=== PATIENT | female | born 1990 | race Caucasian/White ===

== ENCOUNTER 2017-05-23 12:28 | Emergency (ER) | payer OTHER ==
[2017-05-23] MEDS ORDERED: DIPHENHYDRAMINE HCL 25 MG CAPSULE PO ONE (12:40)
[2017-05-23] MEDS ORDERED: METOCLOPRAMIDE HCL 10 MG TABLET PO ONE (12:41)
--- NOTE | 2017-05-23 12:42 | ER Document Report ---
ED Medical Screen (RME) - General Chief Complaint: S/S of Possible Stroke Stated Complaint: NUMBNESS Time Seen by Provider: 05/23/17 12:35 Notes: This 26-year-old female patient with a long history of hemiplegic migraine reports onset this morning at 10:30 AM of right-sided numbness to the foot traveling up the leg and eventually to the upper extremity and the face. It later began to progress over to the left side of her body. She also noted some difficulty with speech earlier. She reports this is the third episode of this in the past week. She has not taken medications because there is no headache involved and the symptoms eventually clear. Reports when she gets severe episodes she will have speech trouble, problems concentrating or remembering how to name objects, and profound weakness. Time speech is clear, she is able to grasp and hold objects with both extremities. There is no facial asymmetry. She is almost 30 weeks . I have greeted and performed a rapid initial assessment of this patient. A comprehensive ED assessment and evaluation of the patient, analysis of test results and completion of the medical decision making process will be conducted by additional ED providers. TRAVEL OUTSIDE OF THE [place] IN LAST 30 DAYS: No - Related Data Allergies/Adverse Reactions: cefaclor [From [facility]] Allergy (Verified 03/31/16 03:59) Penicillins Allergy (Verified 03/31/16 03:59) Past Medical History Endocrine Medical History: Reports: Hx Hypothyroidism Renal/ Medical History: Denies: Hx Peritoneal Dialysis - Immunizations Hx Diphtheria, Pertussis, Tetanus Vaccination: Yes - received with [facility] Physical Exam - Vital signs Vitals: Temp Pulse Resp BP Pulse Ox 98.1 F 100 17 138/72 H 99 05/23/17 12:33 05/23/17 12:33 05/23/17 12:33 05/23/17 12:33 05/23/17 12:33 Course - Vital Signs Vital signs: Temp Pulse Resp BP Pulse Ox 98.1 F 100 17 138/72 H 99 05/23/17 12:33 05/23/17 12:33 05/23/17 12:33 05/23/17 12:33 05/23/17 12:33
[2017-05-23] MEDS ORDERED: NORMAL SALINE 1000 ML 1,000 ML IV ONE (13:00)
--- NOTE | 2017-05-23 13:24 | ER Document Report ---
ED General - General Chief Complaint: S/S of Possible Stroke Stated Complaint: NUMBNESS Time Seen by Provider: 05/23/17 12:35 Notes: The patient is a 26-year-old female patient, 29weeks , long history of hemiplegic migraine, reports onset this morning at 10:30 AM of right- sided numbness to the foot traveling up the leg and eventually to the upper extremity and the face. It later began to progress over to the left side of her body. She also noted some difficulty with speech earlier. She reports this is the third episode of this in the past week. She has not taken medications because there is no headache involved and the symptoms eventually clear. She reports when she gets severe episodes she will have speech trouble, problems concentrating or remembering how to name objects, and profound weakness. Denies abdominal pain, urinary symptoms, nausea, vomiting, fever, blurry vision , ataxia, neck stiffness or back pain. TRAVEL OUTSIDE OF THE [place] IN LAST 30 DAYS: No - Related Data Allergies/Adverse Reactions: cefaclor [From [facility]] Allergy (Verified 03/31/16 03:59) Penicillins Allergy (Verified 03/31/16 03:59) Past Medical History - General Information source: Patient - Social History Smoking Status: Never Smoker Family History: Reviewed & Not Pertinent Patient has suicidal ideation: No Patient has homicidal ideation: No Endocrine Medical History: Reports: Hx Hypothyroidism Renal/ Medical History: Denies: Hx Peritoneal Dialysis - Immunizations Hx Diphtheria, Pertussis, Tetanus Vaccination: Yes - received with [facility] Review of Systems - Review of Systems Notes: REVIEW OF SYSTEMS: CONSTITUTIONAL: -fevers, -chills EENT: -eye pain, -difficulty swallowing, -nasal congestion CARDIOVASCULAR:-chest pain, -syncope. RESPIRATORY: -cough, -SOB GASTROINTESTINAL: -abdominal pain, - nausea, -vomiting, -diarrhea GENITOURINARY: -dysuria, -hematuria MUSCULOSKELETAL: -back pain, -neck pain SKIN: -rash or skin lesions. HEMATOLOGIC: -easy bruising or bleeding. LYMPHATIC: -swollen, enlarged glands. NEUROLOGICAL: -altered mental status or loss of consciousness, +headache, + neurologic symptoms PSYCHIATRIC: -anxiety, -depression. ALL OTHER SYSTEMS REVIEWED AND NEGATIVE. Physical Exam - Vital signs Vitals: Temp Pulse Resp BP Pulse Ox 98.1 F 100 17 138/72 H 99 05/23/17 12:33 05/23/17 12:33 05/23/17 12:33 05/23/17 12:33 05/23/17 12:33 - Notes Notes: PHYSICAL EXAMINATION: GENERAL: Well-appearing, well-nourished and in no acute distress. HEAD: Atraumatic, normocephalic. EYES: Pupils equal round and reactive to light, extraocular movements intact, sclera anicteric, conjunctiva are normal. ENT: nares patent, oropharynx clear without exudates. Moist mucous membranes. NECK: Normal range of motion, supple without lymphadenopathy LUNGS: Breath sounds clear to auscultation bilaterally and equal. No wheezes rales or rhonchi. HEART: Regular rate and rhythm without murmurs ABDOMEN: Soft, nontender, normoactive bowel sounds. No guarding, no rebound. No masses appreciated. EXTREMITIES: Normal range of motion, no pitting or edema. No cyanosis. NEUROLOGICAL: Cranial nerves grossly intact. Slightly slurred speech (according to mom), normal gait. Numbness of left shoulder. Normal motor exams. PSYCH: Normal mood, normal affect. SKIN: Warm, Dry, normal turgor, no rashes or lesions noted. Course - Re-evaluation Re-evalutation: With worsening headache that is different from her prior migraines and right and now left sided numbness with slurred speech and , concern for central venous thrombosis. Will obtain MRV of head. Spoke to patient about risks and benefits of Gadolinium during and provided her with an article to read. Answered her questions and she consents to the MRV. 05/23/17 18:31 Pt's ache and neuro symptoms have completely resolved. Patient MRV and MRI do not show any acute abnormalities. Her neuro symptoms are most likely related to her hemiplegic migraines. Instructed patient to continue Tylenol and magnesium oxide for any headaches follow-up with her OB tomorrow as scheduled and neurologist. - Vital Signs Vital signs: Temp Pulse Resp BP Pulse Ox 98.1 F 90 17 131/85 H 99 05/23/17 12:33 05/23/17 18:00 05/23/17 18:00 05/23/17 18:00 05/23/17 18:00 - Laboratory Result Diagrams: 05/23/17 13:00 07/05/17 13:00 Laboratory results interpreted by me: 05/23/17 05/23/17 13:00 13:00 Hgb 10.3 L Hct 32.2 L MCV 73 L MCH 23.5 L RDW 15.4 H Carbon Dioxide 21 L BUN 5 L Creatinine 0.50 L - Diagnostic Test Radiology reviewed: Image reviewed, Reports reviewed Radiology results interpreted by me: MRI/MRV: NAD Discharge - Discharge Clinical Impression: Headache Qualifiers: Headache type: unspecified Headache chronicity pattern: chronic headache Intractability: not intractable Qualified Code(s): R51 - Headache Condition: Stable Disposition: HOME, SELF-CARE Additional Instructions: Your MRI and MRV do not show any evidence of blood clots or any other concerning abnormalities. Take Tylenol and mag oxide and follow-up with your OB tomorrow as scheduled. Follow-up with the neurologist for further evaluation and treatment. HEADACHE: The physician does not feel that the headache you are experiencing has a serious underlying cause. Most headaches are due to emotional stress, with resultant muscle tension (tension headache). Occasionally, headaches are secondary to changes in the blood vessels of the scalp (vascular headache and migraine headache). Sometimes, a headache is the first symptom of another developing illness, such as a viral infection. You have no evidence of stroke, bleeding, meningitis, or other serious cause of your headache. The treatment of headaches varies with the severity and cause of the pain. Not all headaches need pain shots. In fact, there is evidence that using narcotics for headaches may make them worse in the long run. The physician will determine the therapy that's in your best interest. If you develop a fever, if the headache is different from any you've previously experienced, or if the headache progressively worsens, then call your physician at once or go to the emergency room. REGLAN (METOCLOPRAMIDE): Reglan has been prescribed. This medicine affects the stomach and intestines. It can be used to treat nausea and vomiting, to prevent reflux of stomach acid up into the esophagus, or to increase the contractions of the stomach and intestines. It is often prescribed for esophagitis, and for paralysis of the stomach in diabetics. Reglan can cause either mild restlessness or drowsiness. You should contact the doctor at once if you become extremely restless, anxious, or cannot sleep, or if you develop uncontrollable motions of the lips, tongue, or jaw. Do not take alcohol with this medicine. Do not drive or operate machinery until you have been taking this medicine long enough to know how it affects you. Call the doctor if you develop abdominal pains, lightheadedness, black stool, or blood in the stool or vomitus. USE OF DIPHENHYDRAMINE: Diphenhydramine (Benadryl) is an antihistamine and has been recommended to help treat your headache and to prevent side effects of other medications used to treat headaches. The medication can be repeated four times daily. Age Elixir (12.5 mg/tsp) 25 mg pill adult 1-2 tabs Antihistamines may cause drowsiness, especially with the first dose. Do not operate machinery or drive while under the effects of the medication. Do not combine the medication with alcohol, or with any other medication without talking to your doctor. FOLLOW-UP CARE: If you have been referred to a physician for follow-up care, call the physician s office for an appointment as you were instructed or within the next two days. If you experience worsening or a significant change in your symptoms, notify the physician immediately or return to the Emergency Department at any time for re-evaluation. Referrals: JACQUES CHRISTY MD [Primary Care Provider] - Follow up as needed CATRACHITO MARTÍNEZ MD [ACTIVE STAFF] - Follow up as needed
[2017-05-23 13:46] LABS: ABSOLUTE EOSINOPHILS # (AUTO) 0.3 10^3/uL (0.0-0.6); ABSOLUTE LYMPHOCYTES (AUTO) 1.6 10^3/uL (0.5-4.7); ABSOLUTE MONOCYTES (AUTO) 0.6 10^3/uL (0.1-1.4); ABSOLUTE NEUT (AUTO) 7.4 10^3/uL (1.7-8.2); BASOPHILS % (AUTO) 0.1 % (0-2); EOSINOPHILS % (AUTO) 3.2 % (0-6); HEMATOCRIT 32.2 % (36.0-47.0); HEMOGLOBIN 10.3 g/dL (12.0-15.5); HGB HCT DIFFERENCE -1.3; LYMPHOCYTES % (AUTO) 16.4 % (13-45); MEAN CORPUSCULAR HEMOGLOBIN 23.5 pg (27.0-33.4); MEAN CORPUSCULAR VOLUME 73 fl (80-97); MONOCYTES % (AUTO) 6.5 % (3-13); RED BLOOD COUNT 4.39 10^6/uL (3.72-5.28); RED CELL DISTRIBUTION WIDTH 15.4 % (11.5-14.0); SEGMENTED NEUTROPHILS % (AUTO) 73.8 % (42-78)
[2017-05-23 14:05] LABS: ANION GAP 12 (5-19); BLOOD UREA NITROGEN 5 mg/dL (7-20); CARBON DIOXIDE 21 mmol/L (22-30); CHLORIDE 104 mmol/L (98-107); GLUCOSE 80 mg/dL (75-110); POTASSIUM 4.1 mmol/L (3.6-5.0)
--- NOTE | 2017-05-23 18:08 | RADIOLOGY REPORT (SQ) ---
EXAM DESCRIPTION: MRI HEAD WITHOUT COMPLETED DATE/TIME: 05/23/2017 5:50 pm REASON FOR STUDY: numbness, slurred speech COMPARISON: None. TECHNIQUE: Multiplanar imaging includes non-contrasted T1, T2, FLAIR, and diffusion with ADC map seq uences. Images stored on PACS. LIMITATIONS: None. FINDINGS: ANATOMY: No anomalies. Normal vascular flow voids. Pituitary fossa normal. CSF SPACES: Normal in size and contour. No hemorrhage. CEREBRUM: Sulci and gyri normal in size and contour. Normal white matter signal on FLAIR imaging. No evidence of hemorrhage, mass, or extraaxial fluid collection. POSTERIOR FOSSA: No signal alteration. No hemorrhage. No edema, masses or mass effect. Internal malachi tory canals, cerebello-pontine angles, mastoids normal. DIFFUSION IMAGING: Negative for acute or sub-acute infarction. ORBITS: No masses. Globes normal. PARANASAL SINUSES: Right maxillary sinus opacification. OTHER: No other significant finding. IMPRESSION: NORMAL MRI OF THE BRAIN WITHOUT INTRAVENOUS GADOLINIUM CONTRAST.Right maxillary sinus op acification. TECHNICAL DOCUMENTATION: JOB ID: [id number]- All Rights Reserved
[2017-05-23 18:10] VITALS: BP 131/85
--- NOTE | 2017-05-23 18:13 | RADIOLOGY REPORT (SQ) ---
EXAM DESCRIPTION: MRA HEAD WITHOUT COMPLETED DATE/TIME: 05/23/2017 5:50 pm REASON FOR STUDY: MRV, headache, slurred speech, COMPARISON: None. TECHNIQUE: Multi planar multisequence imaging was obtained for performance of an MRV. LIMITATIONS: None. FINDINGS: There is patency of the major cerebral venous structures. No intraluminal thrombus is teagan ntified. IMPRESSION: No significant findings. TECHNICAL DOCUMENTATION: JOB ID: [id number] [employer]- All Rights Reserved
== END 2017-05-23 18:29 | disposition home or self-care (01) ==
LOC: ER 12:28
DX: O26.93 Pregnancy related conditions, unspecified, third trimester (principal); R20.0 Anesthesia of skin; R51 Headache; E03.9 Hypothyroidism, unspecified; Z3A.29 29 weeks gestation of pregnancy; Z88.0 Allergy status to penicillin
CPT/HCPCS: 99284; 96360; 36415; 85025; 80048; 70551; 70544; J7030

== ENCOUNTER 2017-05-26 21:09 | Emergency (ER) | payer OTHER ==
[2017-05-26] MEDS ORDERED: DIPHENHYDRAMINE HCL 50 MG/ML VIAL IV ONE (22:23)
[2017-05-26] MEDS ORDERED: KETOROLAC TROMETHAMINE INJ/PF 30 MG/1 ML SDV IV ONE (22:23)
[2017-05-26] MEDS ORDERED: PROCHLORPERAZINE EDISYLATE INJ 10 MG/2 ML VIAL IV ONE (22:23)
--- NOTE | 2017-05-26 23:07 | ER Document Report ---
ED General - General Chief Complaint: Headache Stated Complaint: HEADACHE Time Seen by Provider: 05/26/17 21:53 Notes: Patient is a 26-year-old female currently who presents with a migraine headache. Describes it as a severe, constant, throbbing pain to her right- sided scalp and behind her right eye. Notes associated blurring of her vision and vomiting. Any exposure to light or loud sounds worsens the pain. She has tried Tylenol without improvement of the pain. Notes a history of similar headaches in the past. Headache was gradual in onset and did get progressively worse. Patient was recently seen and evaluated in the emergency department for similar presentation and had an MRI of her head at that time which was noted to be normal. Denies any focal weakness or numbness. TRAVEL OUTSIDE OF THE [place] IN LAST 30 DAYS: No - Related Data Allergies/Adverse Reactions: cefaclor [From Ceclor] Allergy (Verified 03/31/16 03:59) Penicillins Allergy (Verified 03/31/16 03:59) Past Medical History - General Information source: Patient - Social History Smoking Status: Never Smoker Frequency of alcohol use: None Drug Abuse: None Lives with: Spouse/Significant other Family History: Reviewed & Not Pertinent Patient has suicidal ideation: No Patient has homicidal ideation: No Endocrine Medical History: Reports: Hx Hypothyroidism Renal/ Medical History: Denies: Hx Peritoneal Dialysis - Immunizations Hx Diphtheria, Pertussis, Tetanus Vaccination: Yes - received with [facility] Review of Systems - Review of Systems Notes: Constitutional: Negative for fever. HENT: Negative for sore throat. Eyes: Negative for visual changes. Cardiovascular: Negative for chest pain. Respiratory: Negative for shortness of breath. Gastrointestinal: Negative for abdominal pain, vomiting or diarrhea. Genitourinary: Negative for dysuria. Musculoskeletal: Negative for back pain. Skin: Negative for rash. Neurological: Positive for headache 10 point ROS negative except as marked above and in HPI. Physical Exam - Vital signs Vitals: Temp Pulse Resp BP Pulse Ox 97.8 F 103 H 16 119/67 100 05/26/17 21:19 05/26/17 21:19 05/26/17 21:19 05/26/17 21:19 05/26/17 21:19 Interpretation: Tachycardic Notes: PHYSICAL EXAMINATION: GENERAL: Well-appearing, well-nourished and in no acute distress. HEAD: Atraumatic, normocephalic. EYES: Pupils equal round and reactive to light, extraocular movements intact, sclera anicteric, conjunctiva are normal. ENT: nares patent, oropharynx clear without exudates. Moist mucous membranes. NECK: Normal range of motion, supple without lymphadenopathy LUNGS: Breath sounds clear to auscultation bilaterally and equal. No wheezes rales or rhonchi. HEART: Regular rate and rhythm without murmurs ABDOMEN: Soft, nontender, normoactive bowel sounds. No guarding, no rebound. No masses appreciated. EXTREMITIES: Normal range of motion, no pitting or edema. No cyanosis. NEUROLOGICAL: Face symmetric. Tongue protrudes midline. Extraocular motions intact. Pupils are 2 mm and equally reactive. Normal speech, normal gait. 5 out of 5 strength in both the distal and proximal upper and lower extremities bilaterally. Sensation is grossly intact throughout. Finger to nose testing normal. Pronator drift normal. PSYCH: Normal mood, normal affect. SKIN: Warm, Dry, normal turgor, no rashes or lesions noted. Course - Re-evaluation Re-evalutation: 05/26/17 23:07 Presentation of a headache that appears to be most consistent with tension versus migrainous type headache. Headache was not maximal in onset, patient has no focal neurologic deficits, no nuchal rigidity, vital signs within normal limits, no papilledema, and patient is overall well in appearance. Based on clinical history and examination I do not suspect an acute subarachnoid hemorrhage, dural venous sinus thrombosis, acute meningitis, or intercranial mass. Given my low clinical suspicion for any acute life-threatening etiology, I do not feel advanced neuro imaging or laboratory testing is indicated at this time. Will proceed with headache cocktail and reassess. 05/27/17 00:43 Patient is a complete resolution of her headache at this time. Remains without any neurologic deficits. At this time will discharge with return precautions and follow-up recommendations. Verbal discharge instructions given a the bedside and opportunity for questions given. Medication warnings reviewed. Patient is in agreement with this plan and has verbalized understanding of return precautions and the need for primary care follow-up in the next 24-72 hours. - Vital Signs Vital signs: Temp Pulse Resp BP Pulse Ox 98.6 F 79 18 105/50 L 97 05/27/17 00:02 05/27/17 00:02 05/27/17 00:02 05/27/17 00:11 05/27/17 00:02 Discharge - Discharge Clinical Impression: Migraine headache Qualifiers: Migraine type: unspecified Status migrainosus presence: with status migrainosus Intractability: not intractable Qualified Code(s): G43.901 - Migraine, unspecified, not intractable, with status migrainosus Condition: Good Disposition: HOME, SELF-CARE Additional Instructions: You were seen today for a migraine headache. Please follow-up with your primary care doctor regarding today's ED visit. Return to emergency department immediately if you develop a headache that gets to its maximum severity within 20 minutes of onset, you pass out, you develop weakness, numbness, changes in your vision, become unable to keep any fluids down for more than 12 hours, or develop a fever greater than 100.4 degrees Fahrenheit. Referrals: JACQUES CHRISTY MD [Primary Care Provider] - Follow up as needed
[2017-05-27 00:13] VITALS: BP 105/50
== END 2017-05-27 00:53 | disposition home or self-care (01) ==
LOC: ER 21:09
DX: G43.901 Migraine, unspecified, not intractable, with status migrainosus (principal); H53.8 Other visual disturbances; R11.10 Vomiting, unspecified; R00.0 Tachycardia, unspecified; Z88.1 Allergy status to other antibiotic agents; Z88.0 Allergy status to penicillin
CPT/HCPCS: 99283; 96374; 96375; J1200; J0780

== ENCOUNTER 2017-08-02 05:13 | Inpatient (IN) | payer OTHER ==
[2017-08-01 11:08] LABS: ABSOLUTE EOSINOPHILS # (AUTO) 0.3 10^3/uL (0.0-0.6); ABSOLUTE LYMPHOCYTES (AUTO) 1.9 10^3/uL (0.5-4.7); ABSOLUTE MONOCYTES (AUTO) 0.6 10^3/uL (0.1-1.4); ABSOLUTE NEUT (AUTO) 5.3 10^3/uL (1.7-8.2); BASOPHILS % (AUTO) 0.4 % (0-2); EOSINOPHILS % (AUTO) 3.5 % (0-6); HEMATOCRIT 30.8 % (36.0-47.0); HEMOGLOBIN 9.6 g/dL (12.0-15.5); MEAN CORPUSCULAR HEMOGLOBIN 21.5 pg (27.0-33.4); MEAN CORPUSCULAR HGB CONC 31.1 g/dL (32.0-36.0); MEAN CORPUSCULAR VOLUME 69 fl (80-97); MONOCYTES % (AUTO) 7.7 % (3-13); RED BLOOD COUNT 4.47 10^6/uL (3.72-5.28); RED CELL DISTRIBUTION WIDTH 17.3 % (11.5-14.0); SEGMENTED NEUTROPHILS % (AUTO) 65.4 % (42-78); WHITE BLOOD COUNT 8.1 10^3/uL (4.0-10.5)
[2017-08-01 11:11] LABS: AMORPHOUS SEDIMENT,URINE TRACE /HPF; APPEARANCE,URINE CLOUDY; BILIRUBIN,URINE NEGATIVE (NEGATIVE); GLUCOSE, URINE NEGATIVE (NEGATIVE); KETONES,URINE NEGATIVE (NEGATIVE); LEUKOCYTE ESTERASE,URINE NEGATIVE (NEGATIVE); NITRITE,URINE NEGATIVE (NEGATIVE); PROTEIN,URINE NEGATIVE (NEGATIVE); URINE SPECIFIC GRAVITY 1.017
[2017-08-01 11:41] LABS: URINE BARBITURATES SCREEN NEGATIVE; URINE METHADONE SCREEN NEGATIVE; URINE OPIATES LOW NEGATIVE; URINE PHENCYCLIDINE SCREEN NEGATIVE
[~2017-08-02 05:13] MED LIST: AZITHROMYCIN 500 MG in DEXTROSE 5%-WATER 250 ML IV PRN; LACTATED RINGERS 1000 ML IV PRN; LIDOCAINE 0.5% INJ-PF (5 MG/ML) 50 ML SDV SUBCUT PRN; RINGERS SOLUTION,LACTATED 1,000 ML IV PRN
[2017-08-02] MEDS ORDERED: OXYTOCIN/NORMAL SALINE 20 UNIT/1,000 ML RTUINJ ONE ×2 (07:26→09:56)
[2017-08-02] MEDS ORDERED: FENTANYL CITRATE INJ/PF 100 MCG/2 ML AMPUL ONE (07:27)
[2017-08-02] MEDS ORDERED: EPHEDRINE SULFATE INJ 50 MG/1 ML AMPULE ONE (07:27)
[2017-08-02] MEDS ORDERED: OXYTOCIN 10 UNIT/ML VIAL ONE (07:27)
[2017-08-02] MEDS ORDERED: MIDAZOLAM 2 MG/2 ML INJ ONE (07:27)
[2017-08-02] MEDS ORDERED: MEPERIDINE HCL/PF INJ 25 MG/1 ML DISP.SYRIN IV PRN (08:03)
[2017-08-02] MEDS ORDERED: DIPHENHYDRAMINE HCL 50 MG/ML VIAL IV PRN (08:03)
[2017-08-02] MEDS ORDERED: PROMETHAZINE HCL INJ 25 MG/1 ML VIAL IV PRN ×2 (08:03)
[2017-08-02] MEDS ORDERED: FENTANYL CITRATE INJ/PF 100 MCG/2 ML AMPUL IV PRN ×3 (08:03)
[2017-08-02] MEDS ORDERED: MORPHINE SULFATE 10 MG/ML INJ IV PRN ×2 (08:03→10:30)
[2017-08-02] MEDS ORDERED: ONDANSETRON HCL INJ/PF 4 MG/2 ML SDV IV PRN (08:08)
[2017-08-02] MEDS ORDERED: ACETAMINOPHEN 100 ML IV ONE ×2 (08:55→17:00)
[2017-08-02] MEDS ORDERED: MISOPROSTOL 0.2 MG TABLET ONE (09:26)
--- NOTE | 2017-08-02 09:33 | OPERATIVE REPORT E ---
Operative Report NAME: SIVAKUMAR HAHN : 1990 AGE: 26Y DATE OF SURGERY: 08/02/2017 ROOM: 217 PREOPERATIVE DIAGNOSES: 1. IUP at 39 weeks. 2. Previous , desires repeat. POSTOPERATIVE DIAGNOSES: 1. IUP at 39 weeks. 2. Previous , desires repeat. PROCEDURE: Low-transverse hysterotomy section. SURGEON: JACQUES CHRISTY M.D. ANESTHESIA: Dr. Reyes with a spinal. FINDINGS: Male in cephalic presentation with Apgars of 9 and 9, weight 9 pounds 4 ounces. COMPLICATIONS: None. ESTIMATED BLOOD LOSS: 600 mL. SPECIMENS REMOVED: None. PROCEDURE IN DETAIL: The patient was taken to the operating room, prepared and draped in a normal sterile fashion in a supine position with a leftward tilt. A transverse skin incision was made following the patient's previous scar with a scalpel and this was carried through to the underlying layer of fascia with the same scalpel. The fascia was incised in the midline and extended laterally with Mcduffie scissors. The fascia was then dissected from the rectus muscle bluntly and the rectus muscle was divided. The peritoneal cavity was entered sharply with Metzenbaums and divided with good visualization of the bladder and the uterus. The bladder blade was inserted. The hysterotomy was nicked with a scalpel and extended laterally with surgeon finger fracture. The 's head was then grasped, found to be larger than anticipated, so the uterine incision was extended slightly with bandage scissors and the rectus muscle was divided slightly with bandage scissors. Regrasping of the 's head allowed for easier delivery, and the infant was then delivered atraumatically. The nose and mouth were suctioned with a suction bulb, the cord was clamped and cut, and the was handed off to awaiting pediatricians. The cord blood was collected. The placenta was removed manually. The uterus was exteriorized and cleared of clots and debris. The hysterotomy was closed with 0 Monocryl in a running locked fashion. A second layer of the same suture was used to imbricate to ensure hemostasis. The uterus was then returned to the abdomen and the peritoneal cavity was cleared of clots and debris. The rectus muscle and peritoneum were reapproximated with a mattress stitch of 2-0 chromic. The fascia was closed with 0 Vicryl. The subcutaneous layer was closed with plain catgut and the skin was closed with 4-0 Vicryl. The patient tolerated the procedure well. Sponge, lap, and needle counts were correct x2. The patient was taken to recovery in stable condition. DICTATING PHYSICIAN: JACQUES CHRISTY M.D. [id number] PHY#: [id number] ID: [id number] JOB#: [id number] ACCT: [id number] cc:JACQUES CHRISTY M.D. >
[2017-08-02] MEDS ORDERED: OXYTOCIN/NORMAL SALINE 20 UNIT/1,000 ML RTUINJ INJ PRN (10:08)
[2017-08-02] MEDS ORDERED: DIPH/PERTUSS(ACELL)/TETANUS VAC/PF 0.5 ML SYR (>=10YO) IM PRN (10:30)
[2017-08-02] MEDS ORDERED: OXYCODONE-ACETAMINOPHEN 5-325 MG TABLET PO PRN ×2 (10:30)
[2017-08-02] MEDS ORDERED: MEASLES,MUMPS&RUBELLA VACC/PF 0.5 ML VIAL SUBCUT PRN (10:30)
[2017-08-02] MEDS ORDERED: ACETAMINOPHEN 325 MG TABLET PO PRN (10:30)
[2017-08-02] MEDS ORDERED: PROMETHAZINE HCL INJ 25 MG/1 ML VIAL IM PRN (10:30)
[2017-08-02] MEDS ORDERED: RINGERS SOLUTION,LACTATED 1,000 ML IV SCH (10:30)
[2017-08-02] MEDS ORDERED: SIMETHICONE 80 MG TAB.CHEW PO PRN (10:30)
--- NOTE | 2017-08-02 11:09 | PDOC PROGRESS REPORT ---
Subjective-OB Subjective: Post Delivery Day: 26 year old. Denies any needs at this time Physical Exam (OB) Vital Signs: Temp Pulse Resp BP Pulse Ox 97.5 F 76 16 109/64 100 08/02/17 10:25 08/02/17 10:25 08/02/17 10:25 08/02/17 10:25 08/02/17 10:25 Intake & Output 08/01/17 08/02/17 08/03/17 06:59 06:59 06:59 Intake Total 800 Balance 800 Weight 102.512 kg - Lochia Lochia Amount: Small 10-25 ml - Abdomen Description: Tender, Round Hernia Present: No Bowel Sounds: Normoactive Flatus Presence: Absent Stool: No Objective-Diagnostic Laboratory: 08/01/17 09:00 08/01/17 08/01/17 08/01/17 09:00 09:00 09:55 WBC 8.1 RBC 4.47 Hgb 9.6 L Hct 30.8 L MCV 69 L MCH 21.5 L MCHC 31.1 L RDW 17.3 H Plt Count 196 Seg Neutrophils % 65.4 Lymphocytes % 23.0 Monocytes % 7.7 Eosinophils % 3.5 Basophils % 0.4 Absolute Neutrophils 5.3 Absolute Lymphocytes 1.9 Absolute Monocytes 0.6 Absolute Eosinophils 0.3 Absolute Basophils 0.0 Urine Color YELLOW Urine Appearance CLOUDY Urine pH 7.0 Ur Specific [place] 1.017 Urine Protein NEGATIVE Urine Glucose (UA) NEGATIVE Urine Ketones NEGATIVE Urine Blood NEGATIVE Urine Nitrite NEGATIVE Ur Leukocyte Esterase NEGATIVE Urine WBC (Auto) 2 Urine RBC (Auto) 5 Blood Type A POSITIVE Antibody Screen NEGATIVE
[2017-08-02] MEDS ORDERED: ONDANSETRON HCL INJ/PF 4 MG/2 ML SDV ONE (12:50)
[2017-08-02] MEDS ORDERED: PHENYLEPHRINE HCL INJ/PF 10 MG/1 ML SDV ONE (12:50)
[2017-08-02] MEDS ORDERED: DEXAMETHASONE SOD PHOSPHATE INJ 4 MG/1 ML VIAL ONE (12:50)
[2017-08-02] MEDS ORDERED: METOCLOPRAMIDE HCL INJ/PF 10 MG/2 ML SDV ONE (12:50)
[2017-08-02] MEDS ORDERED: KETOROLAC TROMETHAMINE 60 MG/2 ML SDV ONE (12:50)
[2017-08-02] MEDS: KETOROLAC TROMETHAMINE INJ/PF 30 MG/1 ML SDV IV SCH ×2 (14:14→21:56)
[2017-08-02] MEDS: DOCUSATE SODIUM 100 MG CAPSULE PO SCH (17:54)
[2017-08-03] MEDS: KETOROLAC TROMETHAMINE INJ/PF 30 MG/1 ML SDV IV SCH (05:36)
[2017-08-03] MEDS: IBUPROFEN 800 MG TABLET PO SCH ×3 (06:11→18:13)
[2017-08-03] MEDS ORDERED: IBUPROFEN 800 MG TABLET ONE (06:11)
[2017-08-03 06:54] LABS: HEMATOCRIT 21.2 % (36.0-47.0); HGB HCT DIFFERENCE -0.2; MEAN CORPUSCULAR HEMOGLOBIN 22.2 pg (27.0-33.4); MEAN CORPUSCULAR VOLUME 67 fl (80-97); RED BLOOD COUNT 3.16 10^6/uL (3.72-5.28); RED CELL DISTRIBUTION WIDTH 17.1 % (11.5-14.0); WHITE BLOOD COUNT 12.8 10^3/uL (4.0-10.5)
--- NOTE | 2017-08-03 09:12 | PDOC DISCHARGE SUMMARY ---
Final Diagnosis Discharge Date: 08/03/17 - Final Diagnosis (1) Status post repeat low transverse section Is this a current diagnosis for this admission?: Yes Discharge Data - Discharge Medication Home Medications: Levothyroxine Sodium [Synthroid] 75 mcg PO DAILY 09/14/15 Pyridoxine HCl [Vitamin B-6] 250 mg PO DAILY 08/01/17 Topiramate [Topamax] 50 mg PO QPM 08/01/17 Reason(s) for Admission: Ceasarean Section-Repeat Procedures: None Intrapartum Procedure(s): : Low Cervical, Transverse - Diagnosis Test Laboratory: Temp Pulse Resp BP Pulse Ox 98.6 F 74 16 110/53 L 100 08/03/17 07:45 08/03/17 07:45 08/03/17 07:45 08/03/17 07:45 08/03/17 07:45 08/01/17 08/01/17 08/03/17 09:00 09:55 06:13 RBC 4.47 3.16 L Hgb 9.6 L 7.0 L D Hct 30.8 L 21.2 L Urine Opiates Screen NEGATIVE - Discharge information/Instructions Discharge Activity: Balance Activity w/Rest, No Lifting Over 10 Pounds, No Lifting/Push/Pulling, Pelvic Rest, No tub bath Discharge Diet: Regular Disposition: HOME, SELF-CARE Follow up with: [facility] in: 5, Days
[2017-08-03] MEDS: DOCUSATE SODIUM 100 MG CAPSULE PO SCH ×2 (09:57→18:12)
[2017-08-03] MEDS ORDERED: PRENATAL VITAMIN W-O CA NO5/FE FUMARATE/FA CAPSULE PO SCH (10:00)
--- NOTE | 2017-08-03 11:36 | PDOC PROGRESS REPORT ---
Subjective-OB Subjective: Post Delivery Day: 26 year old. Denies any needs at this time. Pt doing well, ambulatory, reports light bleeding, regular diet, voiding without difficulty and +flatus. She has no complaints. Physical Exam (OB) Vital Signs: Temp Pulse Resp BP Pulse Ox 98.6 F 74 16 104/56 L 100 08/03/17 10:03 08/03/17 10:03 08/03/17 10:03 08/03/17 10:03 08/03/17 10:03 Intake & Output 08/02/17 08/03/17 08/04/17 06:59 06:59 06:59 Intake Total 3365 Output Total 1100 Balance 2265 Weight 102.512 kg - Dressing Removed: No - opsite Incision: Dressing Closure Type: Surgical Glue - Lochia Lochia Amount: Small 10-25 ml Lochia Color: Rubra/Red - Abdomen Description: Soft, Round Hernia Present: No Fundal Description: Firm, Midline Fundal Height: u/u - u/2 Objective-Diagnostic Laboratory: 08/03/17 06:13 08/03/17 06:13 WBC 12.8 H RBC 3.16 L Hgb 7.0 L D Hct 21.2 L MCV 67 L MCH 22.2 L MCHC 33.0 RDW 17.1 H Plt Count 181 Assessment and Plan(PN) - Assessment and Plan (1) Status post repeat low transverse section Is this a current diagnosis for this admission?: Yes - Time Spent with Patient Time with patient: Less than 15 minutes Medications reviewed and adjusted accordingly: Yes - Disposition Anticipated Discharge: Home Within: within 24 hours
[2017-08-03] MEDS ORDERED: IBUPROFEN 800 MG TABLET PO SCH (12:00)
[2017-08-03] MEDS: FERROUS SULFATE 325 MG TABLET PO SCH ×2 (13:49→18:12)
[2017-08-03 17:07] VITALS: BP 104/56
[2017-08-03] MEDS ORDERED: ASCORBIC ACID 500 MG TABLET PO SCH (18:00)
== END 2017-08-03 20:00 | disposition home or self-care (01) | DRG 766 ==
LOC: 2S 05:13
PROVIDERS: ADMIT Obstetrics & Gynecology; ATTEND Obstetrics & Gynecology
PROC: 10D00Z1 Extraction of Products of Conception, Low, Open Approach (ICD-10-PCS; principal; 2017-08-02 07:45)
DX: O34.211 Maternal care for low transverse scar from previous cesarean delivery (principal); O99.284 Endocrine, nutritional and metabolic diseases complicating childbirth; O99.214 Obesity complicating childbirth; E03.9 Hypothyroidism, unspecified; E66.9 Obesity, unspecified; N85.8 Other specified noninflammatory disorders of uterus; Z68.34 Body mass index [BMI] 34.0-34.9, adult; Z3A.39 39 weeks gestation of pregnancy; Z37.0 Single live birth
CPT/HCPCS: 1961; 36415; 59025; 80307; 81001; 85025; 85027; 86850; 86900; 86901; 94799; J0131; J0456; J1100; J1885; J2250; J2370; J2405; J2590; J2765; J3010; J3490; J7060; J7120

== ENCOUNTER 2018-02-03 16:28 | Emergency (ER) | payer OTHER ==
[2018-02-03] MEDS ORDERED: LORAZEPAM INJ 2 MG/1 ML VIAL IM ONE (16:41)
--- NOTE | 2018-02-03 16:44 | ER Document Report ---
ED Medical Screen (RME) - General Chief Complaint: Headache <24 hrs old Stated Complaint: SLURRED SPEECH VOMITING Time Seen by Provider: 02/03/18 16:39 Notes: Patient presents last seen normal approximately 11 AM today. states that patient has had slurred speech and right facial droop. No history of heart attack or strokes but she does suffer from migraines. She began to develop a headache earlier today and had tingling on the right side of her face and this is normal but the slurred speech and facial droop is new. She is not on any blood thinners. Patient unconsolable at time of history and she shakes her head yes when asked if she is scared. She will not speak to me. I have greeted and performed a rapid initial assessment of this patient. A comprehensive ED assessment and evaluation of the patient, analysis of test results and completion of the medical decision making process will be conducted by additional ED providers. PHYSICAL EXAMINATION: GENERAL: Crying unconsolable and hyperventilating HEAD: Atraumatic, normocephalic. EYES: Pupils equal round extraocular movements intact, conjunctiva are normal. ENT: Nares patent NECK: Normal range of motion LUNGS: Hyperventilating Musculoskeletal: Normal range of motion NEUROLOGICAL: Mild facial droop on right PSYCH: Hysterical SKIN: Warm, Dry, normal turgor, no rashes or lesions noted. TRAVEL OUTSIDE OF THE [place] IN LAST 30 DAYS: No - Related Data Allergies/Adverse Reactions: cefaclor [From Ceclor] Allergy (Verified 02/03/18 16:30) Penicillins Allergy (Verified 02/03/18 16:30) Past Medical History Endocrine Medical History: Reports: Hx Hypothyroidism Renal/ Medical History: Denies: Hx Peritoneal Dialysis Past Surgical History: Reports: Hx Section, Hx Orthopedic Surgery - bilat knee, Hx Tonsillectomy - Immunizations Hx Diphtheria, Pertussis, Tetanus Vaccination: Yes - received with [facility]
--- NOTE | 2018-02-03 17:23 | RADIOLOGY REPORT (SQ) ---
EXAM DESCRIPTION: CT HEAD WITHOUT COMPLETED DATE/TIME: 02/03/2018 5:12 pm REASON FOR STUDY: slurred speech, right facial droop COMPARISON: MRI head 05/23/2017. TECHNIQUE: Axial images acquired through the brain without intravenous contrast. Images reviewed wi th bone, brain and subdural windows. Images stored on PACS. All CT scanners at this facility use dose modulation, iterative reconstruction, and/or weight based d osing when appropriate to reduce radiation dose to as low as reasonably achievable (ALARA). [facility]: Dose Right [facility]: CareDose [facility]: Dose Right [facility]: Teradose 4D [facility]: [employer] RADIATION DOSE: mGy. LIMITATIONS: None. FINDINGS: VENTRICLES: Normal size and contour. CEREBRUM: No mass effect. No hemorrhage. No midline shift. Normal bunch/white matter differentiatio n. No evidence for acute territorial infarction. CEREBELLUM: No mass effect. No hemorrhage. No alteration of density. No evidence for acute infarct ion. EXTRAAXIAL SPACES: No fluid collections. ORBITS AND GLOBE: Symmetrical contour of the globes. CALVARIUM: No depressed skull fracture. PARANASAL SINUSES: Mucosal thickening with almost complete opacification of the right maxillary sinus . The remainder of the visualized paranasal sinuses and the mastoid air cells are clear. SOFT TISSUES: No hematoma. IMPRESSION: No acute intracranial hemorrhage or acute territorial infarct. Sinus disease with mucosal thickening and almost complete opacification of the right maxillary sinus. EVIDENCE OF ACUTE STROKE: NO. COMMENT: Quality ID # [id number]: Final reports with documentation of one or more dose reduction techniques (e.g., Automated exposure control, adjustment of the mA and/or kV according to patient size, use of iterative reconstruction technique) TECHNICAL DOCUMENTATION: JOB ID: [id number] 2010 [employer]- All Rights Reserved Reading location - IP/workstation name: [email or web address]
[2018-02-03 17:25] LABS: INTERNATIONAL RATION (INR) 0.97; PROTHROMBIN TIME 13.6 SEC (11.4-15.4)
[2018-02-03 17:26] LABS: ABSOLUTE EOSINOPHILS # (AUTO) 0.1 10^3/uL (0.0-0.6); ABSOLUTE MONOCYTES (AUTO) 0.5 10^3/uL (0.1-1.4); ABSOLUTE NEUT (AUTO) 5.3 10^3/uL (1.7-8.2); BASOPHILS % (AUTO) 0.4 % (0-2); EOSINOPHILS % (AUTO) 1.7 % (0-6); HEMATOCRIT 38.7 % (36.0-47.0); HEMOGLOBIN 12.7 g/dL (12.0-15.5); LYMPHOCYTES % (AUTO) 24.9 % (13-45); MEAN CORPUSCULAR HEMOGLOBIN 25.1 pg (27.0-33.4); MEAN CORPUSCULAR HGB CONC 32.7 g/dL (32.0-36.0); MEAN CORPUSCULAR VOLUME 77 fl (80-97); MONOCYTES % (AUTO) 6.4 % (3-13); PARTIAL THROMBOPLASTIN TIME 28.2 SEC (23.5-35.8); PLATELET COUNT 227 10^3/uL (150-450); RED BLOOD COUNT 5.05 10^6/uL (3.72-5.28); RED CELL DISTRIBUTION WIDTH 16.6 % (11.5-14.0); SEGMENTED NEUTROPHILS % (AUTO) 66.6 % (42-78); TOTAL CELLS COUNTED % (AUTO) 100 %
--- NOTE | 2018-02-03 17:36 | RADIOLOGY REPORT (SQ) ---
EXAM DESCRIPTION: CHEST SINGLE VIEW COMPLETED DATE/TIME: 02/03/2018 5:20 pm REASON FOR STUDY: slurred speech, right facial droop COMPARISON: None. EXAM PARAMETERS: NUMBER OF VIEWS: One view. TECHNIQUE: Single frontal radiographic view of the chest acquired. RADIATION DOSE: NA LIMITATIONS: None. FINDINGS: LUNGS AND PLEURA: Ground-glass opacity at the right lung base. No pneumothorax or pleural effusion. MEDIASTINUM AND HILAR STRUCTURES: No masses. Contour normal. HEART AND VASCULAR STRUCTURES: Heart normal in size. Normal vasculature. BONES: No acute findings. HARDWARE: None in the chest. IMPRESSION: Ground-glass opacity at the right lung base, may represent atelectasis or pneumonia. TECHNICAL DOCUMENTATION: JOB ID: [id number] 2010 [employer]- All Rights Reserved Reading location - IP/workstation name: [email or web address]
[2018-02-03 17:45] LABS: ALANINE AMINOTRANSFERASE 29 U/L (9-52); ALBUMIN 4.3 g/dL (3.5-5.0); ALKALINE PHOSPHATASE 56 U/L (38-126); ANION GAP 10 (5-19); ASPARTATE AMINO TRANSFERASE 21 U/L (14-36); BILIRUBIN,DIRECT 0.3 mg/dL (0.0-0.4); BLOOD UREA NITROGEN 11 mg/dL (7-20); CALCIUM 9.4 mg/dL (8.4-10.2); CARBON DIOXIDE 23 mmol/L (22-30); CHLORIDE 108 mmol/L (98-107); GLUCOSE 110 mg/dL (75-110); POTASSIUM 3.8 mmol/L (3.6-5.0); TOTAL PROTEIN 7.1 g/dL (6.3-8.2)
[2018-02-03] MEDS ORDERED: ONDANSETRON HCL INJ/PF 4 MG/2 ML SDV IV ONE (18:52)
[2018-02-03] MEDS ORDERED: KETOROLAC TROMETHAMINE INJ/PF 30 MG/1 ML SDV IV ONE (18:52)
--- NOTE | 2018-02-03 19:40 | ER Document Report ---
ED Headache - General Chief Complaint: Headache <24 hrs old Stated Complaint: SLURRED SPEECH VOMITING Time Seen by Provider: 02/03/18 16:39 Mode of Arrival: Ambulatory Information source: Patient, Relative Notes: 27-year-old female with a history of migraine headaches presents with complaint of headache, nausea, vomiting and hyperventilation. Patient received Ativan prior to my history so the majority of the history is provided by the patient's . Patient awoke with a headache this morning. She took her normal dose of Topamax without relief. Patient states she initially had blurred vision which is her common aura with her migraine headaches. then has been noticed slurred speech and facial droop which is also common with her migraine headaches. She is under neurology care has not been seen since her several months ago. She denies any head injury. reports that she gets frequent similar headaches. The only difference between this headache and her usual headaches is that it was a associated with hyperventilation. TRAVEL OUTSIDE OF THE [place] IN LAST 30 DAYS: No - HPI Patient complains to provider of: Headache, "Migraine" Patient reports: Frequent migraines Onset: This morning Onset was: Gradual Timing: Better Quality of pain: Throbbing Severity: Mild Pain Level: 1 Context: denies: CO exposure, Head injury, Meningitis exposure Preceding symptoms: Typical of prior aura(s), Visual disturbance Associated symptoms: denies: Chills, Fever Exacerbated by: Light, Noise, Movement Similar symptoms previously: Yes Recently seen / treated by doctor: No - Related Data Allergies/Adverse Reactions: cefaclor [From [facility]] Allergy (Verified 02/03/18 16:30) Penicillins Allergy (Verified 02/03/18 16:30) Past Medical History - Social History Smoking Status: Unknown if Ever Smoked Chew tobacco use (# tins/day): No Frequency of alcohol use: Occasional Drug Abuse: None Family History: Reviewed & Not Pertinent Patient has suicidal ideation: No Patient has homicidal ideation: No Neurological Medical History: Reports: Hx Migraine Endocrine Medical History: Reports: Hx Hypothyroidism Renal/ Medical History: Denies: Hx Peritoneal Dialysis Past Surgical History: Reports: Hx Section, Hx Orthopedic Surgery - bilat knee, Hx Tonsillectomy - Immunizations Hx Diphtheria, Pertussis, Tetanus Vaccination: Yes - received with C Review of Systems - Review of Systems Constitutional: See HPI. denies: Fever, Weakness EENT: denies: Nose congestion, Sinus pressure Cardiovascular: No symptoms reported Respiratory: Other - hyperventilating. denies: Cough, Short of breath Genitourinary: denies: Dysuria Female Genitourinary: Last menstrual period - last month is currently on OCPs Musculoskeletal: denies: Back pain Skin: denies: No symptoms reported Neurological/Psychological: Headaches. denies: Anxiety, Sensory change, Seizure , Lost consciousness Physical Exam - Vital signs Vitals: Temp Pulse Resp BP Pulse Ox 97.8 F 63 16 127/75 H 97 02/03/18 16:41 02/03/18 16:41 02/03/18 16:41 02/03/18 16:41 02/03/18 16:41 Interpretation: Normal. No: Hypertensive, Tachycardic - General General appearance: Appears well, Other - Somnolent but arousable secondary to receiving ativan. - HEENT Head: Normocephalic, Atraumatic Eyes: Normal Conjunctiva: Normal Extraocular movements intact: Yes Pupils: PERRL Sinus: Normal Neck: No: Anterior cervical chain, Brudzinski, Kernig's, Meningismus - Respiratory Respiratory status: No respiratory distress. No: Respiratory distress, Cyanosis , Pursed lip breathing Chest status: Nontender Breath sounds: Normal Chest palpation: Normal - Cardiovascular Rhythm: Regular Heart sounds: Normal auscultation Murmur: No Pulses: Normal: Radial, Dorsalis pedis - Abdominal Inspection: Normal Distension: No distension Bowel sounds: Normal Tenderness: Nontender Organomegaly: No organomegaly - Neurological Neuro grossly intact: Yes Cognition: Normal Orientation: AAOx4 Brandon Coma Scale Eye Opening: Spontaneous Brandon Coma Scale Verbal: Oriented Brandon Coma Scale Motor: Obeys Commands Brandon Coma Scale Total: 15 Speech: Normal Cranial nerves: Normal Cerebellar coordination: Normal Motor strength normal: LUE, RUE, LLE, RLE Additional motor exam normals: Equal epidemiology intern Sensory: Normal - Psychological Associated symptoms: Normal affect, Normal mood. No: Anxious - Skin Skin Temperature: Warm Skin Moisture: Dry Skin Color: Normal Course - Re-evaluation Re-evalutation: 02/04/18 00:20 27-year-old female with a history of migraine headaches presents via private vehicle with complaint of headache that started this morning. Patient received IM Ativan prior to my exam and the majority of the history is provided by her . VSS. Patient has no neuro deficits. and patient reports prior similar headaches that are associated with visual disturbance and slurred speech. Difference between this headache and previous headaches is that today it was associated with hyperventilation. Patient did take her home medication of Topamax without relief. Neuro exam is within normal limits. CT showed sinusitis. Chest x-ray shows atelectasis versus pneumonia the patient reports no fever, coughing. Previous medical records including an MRI were reviewed. Patient was reevaluated multiple times and remained sleeping but easily arousable. The CBC showed no evidence of leukocytosis or anemia. CMP showed no electrolyte abnormalities and normal kidney function. Laboratory 02/03/18 02/03/18 02/03/18 17:05 17:05 17:05 WBC 8.0 RBC 5.05 Hgb 12.7 Hct 38.7 MCV 77 L MCH 25.1 L MCHC 32.7 RDW 16.6 H Plt Count 227 Seg Neutrophils % 66.6 Lymphocytes % 24.9 Monocytes % 6.4 Eosinophils % 1.7 Basophils % 0.4 Absolute Neutrophils 5.3 Absolute Lymphocytes 2.0 Absolute Monocytes 0.5 Absolute Eosinophils 0.1 Absolute Basophils 0.0 PT 13.6 INR 0.97 APTT 28.2 Sodium 141.0 Potassium 3.8 Chloride 108 H Carbon Dioxide 23 Anion Gap 10 BUN 11 Creatinine 0.77 Est GFR ( Amer) > 60 Est GFR (Non-Af Amer) > 60 Glucose 110 Calcium 9.4 Total Bilirubin 1.0 Direct Bilirubin 0.3 Neonat Total Bilirubin Not Reportable Neonat Direct Bilirubin Not Reportable Neonat Indirect Bili Not Reportable AST 21 ALT 29 Alkaline Phosphatase 56 Troponin I Total Protein 7.1 Albumin 4.3 Urine HCG, Qual 02/03/18 02/03/18 17:05 18:48 WBC RBC Hgb Hct MCV MCH MCHC RDW Plt Count Seg Neutrophils % Lymphocytes % Monocytes % Eosinophils % Basophils % Absolute Neutrophils Absolute Lymphocytes Absolute Monocytes Absolute Eosinophils Absolute Basophils PT INR APTT Sodium Potassium Chloride Carbon Dioxide Anion Gap BUN Creatinine Est GFR ( Amer) Est GFR (Non-Af Amer) Glucose Calcium Total Bilirubin Direct Bilirubin Neonat Total Bilirubin Neonat Direct Bilirubin Neonat Indirect Bili AST ALT Alkaline Phosphatase Troponin I < 0.012 Total Protein Albumin Urine HCG, Qual NEGATIVE Chest X-Ray 02/03/18 16:40 IMPRESSION: Ground-glass opacity at the right lung base, may represent atelectasis or pneumonia. Head CT 02/03/18 16:40 IMPRESSION: No acute intracranial hemorrhage or acute territorial infarct. Sinus disease with mucosal thickening and almost complete opacification of the right maxillary sinus. EVIDENCE OF ACUTE STROKE: NO. - Vital Signs Vital signs: Temp Pulse Resp BP Pulse Ox 99.5 F 77 18 116/61 100 02/03/18 20:16 02/03/18 20:16 02/03/18 20:16 02/03/18 20:16 02/03/18 20:16 - Laboratory Result Diagrams: 02/03/18 17:05 02/03/18 17:05 Laboratory results interpreted by me: 02/03/18 02/03/18 17:05 17:05 MCV 77 L MCH 25.1 L RDW 16.6 H Chloride 108 H Discharge - Discharge Clinical Impression: Headache Qualifiers: Headache type: other headache syndrome Qualified Code(s): G44.89 - Other headache syndrome Migraine Qualifiers: Migraine type: with aura Status migrainosus presence: without status migrainosus Intractability: not intractable Qualified Code(s): G43.109 - Migraine with aura, not intractable, without status migrainosus Condition: Good Disposition: HOME, SELF-CARE Instructions: Migraine Headache ([facility]) Referrals: JACQUES CHRISTY MD [Primary Care Provider] - Follow up in 3-5 days
[2018-02-03 20:16] VITALS: BP 116/61
--- NOTE | 2018-02-03 20:17 | EKG REPORT ---
SEVERITY:- ABNORMAL ECG - SINUS RHYTHM NONSPECIFIC INTRAVENTRICULAR CONDUCTION DELAY NONSPECIFIC ST-T CHANGES- INFERIOR LEADS : Confirmed by: Matteo Mejia MD 03-Feb-2018 20:17:21
== END 2018-02-03 20:17 | disposition home or self-care (01) ==
LOC: ER 16:28
DX: G43.109 Migraine with aura, not intractable, without status migrainosus (principal); R47.81 Slurred speech; R11.2 Nausea with vomiting, unspecified; R06.4 Hyperventilation; E03.9 Hypothyroidism, unspecified; Z88.0 Allergy status to penicillin
CPT/HCPCS: 93005; 99284; 96372; 96374; 96375; 36415; 85025; 85610; 85730; 81025; 80053; 84484; 71045; 70450; 93010; J1885; J2060; J2405